=== PATIENT | male | born 1950 | race Caucasian/White ===

== ENCOUNTER 2017-05-04 12:46 | Emergency (ER) | payer MEDICARE, OTHER ==
[~2017-05-04] VITALS: Ht 182.9 cm; Wt 96.0 kg
[~2017-05-04 12:46] MED LIST: ALPR0.5T99 PO; LORT10TA PO
[2017-05-04 12:57] VITALS: BP 157/83; PULSE 61; RESP 16; TEMP 97.8; O2SAT 96
[2017-05-04] MEDS ORDERED: TRAM50TA PO (13:08)
[2017-05-04] MEDS ORDERED: ALPR.25 PO (13:08)
[2017-05-04] MEDS ORDERED: DICL75TA PO (13:08)
[2017-05-04] MEDS ORDERED: KETOROLAC TROMETHAMINE 60 MG/2 ML (IM) VIAL IM ONE (13:30)
[2017-05-04] MEDS ORDERED: MORPHINE SULFATE 4 MG/ML INJ IM ONE (13:30)
[2017-05-04] MEDS ORDERED: ONDANSETRON HCL 4 MG/2 ML VIAL IM ONE (13:30)
--- NOTE | 2017-05-04 13:33 | PD ---
HPI Chief Complaint: Musculoskeletal Complaint Time Seen by Provider: 13:13 Travel History International Travel<30 days: No Contact w/Intl Traveler<30days: No Traveled to known affect area: No History of Present Illness HPI This patient complains of pain in the right leg. Symptoms severity is moderate. No injury. Pain starting in the right hip area radiating down the right leg to the level of the midshin. He saw his primary physician who did a plain x-ray that was negative. He then told him to come to the ER to rule out a blood clot. No alleviating factors. Movement is not exacerbating the pain. PFSH Past Medical History Anxiety: Yes Psychiatric: Yes (anxiety) Tetanus Vaccination: Unknown Influenza Vaccination: Yes Past Surgical History Surgical History: No Previous Surgery Social History Alcohol Use: Yes (Rarely) Tobacco Use: No Substance Use: No Allergies-Medications (Allergen,Severity, Reaction): Coded Allergies: shellfish derived (Unverified Allergy, Unknown, Hives, 05/04/17) Reported Meds & Prescriptions Reported Meds & Active Scripts Active Reported Tramadol (Tramadol HCl) 50 Mg Tab 50 Mg PO Q8H PRN Diclofenac Sodium DR (Diclofenac Sodium) 75 Mg Tabdr 75 Mg PO DAILY Xanax (Alprazolam) 0.25 Mg Tab 0.25 Mg PO Q8H PRN Review of Systems General / Constitutional: No: Fever Eyes: No: Visual changes HENT: No: Headaches Cardiovascular: No: Chest Pain or Discomfort Respiratory: No: Shortness of Breath Gastrointestinal: No: Abdominal Pain Genitourinary: No: Dysuria Musculoskeletal: Positive: Pain Skin: No Rash Neurologic: No: Weakness Psychiatric: No: Depression Endocrine: No: Polydipsia Hematologic/Lymphatic: No: Easy Bruising Physical Exam Narrative GENERAL: Well-nourished, well-developed patient with right leg pain. SKIN: Focused skin assessment reveals no rash and nodules. Skin is Warm and dry. HEAD: Atraumatic. Normocephalic. EYES: Pupils equal and round. No scleral icterus. No injection or drainage. ENT: No nasal bleeding or discharge. Mucous membranes pink and moist. NECK: Trachea midline. No JVD. CARDIOVASCULAR: Regular rate and rhythm. No murmur appreciated. RESPIRATORY: No accessory muscle use. Clear to auscultation. Breath sounds equal bilaterally. GASTROINTESTINAL: Abdomen soft, non-tender, nondistended. Hepatic and splenic margins not palpable. MUSCULOSKELETAL: No obvious deformities. No clubbing. No cyanosis. No edema. NEUROLOGICAL: Awake and alert. No obvious cranial nerve deficits. Motor grossly within normal limits. Normal speech. PSYCHIATRIC: Appropriate mood and affect; insight and judgment normal. Data Data Last Documented VS Vital Signs Date Time Temp Pulse Resp B/P (MAP) Pulse Ox O2 Delivery O2 Flow Rate FiO2 05/04/17 12:57 97.8 61 16 157/83 (107) 96 Orders Orders Us Leg Venous Doppler (05/04/17 ) Ondansetron Inj (Zofran Inj) (05/04/17 13:30) Morphine Inj (Morphine Inj) (05/04/17 13:30) Ketorolac Inj (Toradol Inj) (05/04/17 13:30) MDM Medical Decision Making Medical Screen Exam Complete: Yes Emergency Medical Condition: Yes Medical Record Reviewed: Yes Differential Diagnosis Sciatica, DVT, soft tissue injury Narrative Course I have reviewed the patient's electronic medical record. No objective findings on exam Ultrasound of the right leg is normal I gave him injection of morphine and Zofran and Toradol for symptom relief Patient stable for outpatient follow-up. I think his presentation is most consistent with sciatica. If he doesn't have any resolution than his primary physician could consider arranging an MRI of the lumbosacral spine. This would be a next reasonable step. He is neurologically intact. I wrote him 20 Percocet to use as needed. Warned him about potential sedation and constipation. Diagnosis Primary Impression: Sciatica of right side Additional Instructions: The patient was advised to follow up with their physician and return if they worsen. The patient was warned about potential sedation for the medications they will receive on prescription. Med/Other Pt SpecificInfo: Prescription(s) given Disposition: DISCHARGE HOME Condition: Stable Quinn Mckeon MD May 04, 2017 13:32
--- NOTE | 2017-05-04 14:20 | RADRPT ---
EXAM DATE/TIME: 05/04/2017 13:55 [facility] COMPARISON: No previous studies available for comparison. EXTERNAL COMPARISON : [facility], XR HIP AP AND LAT, RIGHT, May 03, 2017 INDICATIONS : Right leg pain. MEDICAL HISTORY : Right leg pain. SURGICAL HISTORY : None. ENCOUNTER: Initial ACUITY: 3 days PAIN SCORE: 8/10 LOCATION: Right leg. TECHNIQUE: Venous ultrasound of the leg was performed from the inguinal ligament to the proximal calf. Real-aishwarya e, color Doppler and spectral tracing, compression and augmentation techniques were used. FINDINGS: There is normal compressibility of the deep venous system from the inguinal region to the proximal ca lf. No echogenic clot is seen in the lumen of the common femoral, femoral, popliteal, and posterior tibial veins. There is a normal response of the venous system to proximal and distal augmentation an d respiration. CONCLUSION: 1. No sonographic evidence for right lower extremity DVT. Bayron Duque MD on May 04, 2017 at 14:18 Board Certified Radiologist. This report was verified electronically.
[2017-05-04] MEDS ORDERED: PERC5TAB12 PO (14:42)
[2017-05-04 14:45] VITALS: BP 151/81; PULSE 62; RESP 16; O2SAT 98
== END 2017-05-04 15:05 | disposition home or self-care (01) ==
LOC: PHED 12:46
DX: M54.31 Sciatica, right side (principal)
CPT/HCPCS: 93971; 96372; 99285; J1885; J2270; J2405

== ENCOUNTER 2017-05-06 14:28 | Observation (INO) | payer MEDICARE ==
[~2017-05-06] VITALS: Ht 182.9 cm; Wt 95.5 kg
[~2017-05-06 14:28] MED LIST changes: +ALPR.25 PO; -ALPR0.5T99 PO; +DICL75TA PO; -LORT10TA PO; +PERC5TAB12 PO; +TRAM50TA PO
[2017-05-06 14:36] VITALS: BP 167/96; PULSE 89; RESP 20; TEMP 97.9; O2SAT 98
--- NOTE | 2017-05-06 15:19 | PD ---
HPI Chief Complaint: Pain: Acute or Chronic Time Seen by Provider: 21:15 Travel History International Travel<30 days: No Contact w/Intl Traveler<30days: No Traveled to known affect area: No History of Present Illness HPI 66-year-old white male here with his complaining of right hip pain which shooting pain to the right leg. Patient was here Sunday for evaluation as well but pain has not decreased and they're concerned that this pain will not go away. Apparently this pain started Sunday after doing some yard work. He denies trauma or any causative factors, nothing seems to decrease his pain. Active movement increases hi pain. He was seen by his primary care physician on and had an x-ray of his pelvis which was normal according to the patient. Patient came to the emergency department Sunday and was given an ultrasound and diagnosed with sciatica and discharged with pain medication. Pain apparently has not improved and has only worsened. Patient denies fevers, chills, unexplained weight loss, night sweats, loss of bowel or bladder function. Patient denies a personal history of cancer. PFSH Past Medical History Medical History: Denies Significant Hx Anxiety: Yes Psychiatric: Yes (anxiety) Tetanus Vaccination: < 5 Years Influenza Vaccination: Yes Past Surgical History Other Surgery: Yes Social History Alcohol Use: Yes (occassional) Tobacco Use: No (quit 1996) Substance Use: No Allergies-Medications (Allergen,Severity, Reaction): Coded Allergies: cefuroxime (Verified Allergy, Severe, itching, 05/06/17) shellfish derived (Unverified Allergy, Unknown, Hives, 05/06/17) Reported Meds & Prescriptions Reported Meds & Active Scripts Active Flexeril (Cyclobenzaprine HCl) 10 Mg Tab 10 Mg PO TID 7 Days Medrol Dosepak (Methylprednisolone) 4 Mg Dspk 4 Mg PO DIRECTED Per Pharmacist direction Percocet (Oxycodone-Acetaminophen) 5-325 mg Tab 1 Tab PO Q6H PRN Reported Tramadol (Tramadol HCl) 50 Mg Tab 50 Mg PO Q8H PRN Diclofenac Sodium DR (Diclofenac Sodium) 75 Mg Tabdr 75 Mg PO DAILY Xanax (Alprazolam) 0.25 Mg Tab 0.25 Mg PO Q8H PRN Review of Systems Except as stated in HPI: all other systems reviewed are Neg Physical Exam Narrative GENERAL: Well-nourished in moderate distress patient laying on left side in tears SKIN: Focused skin assessment warm/dry. HEAD: Atraumatic. Normocephalic. EYES: Pupils equal and round. No scleral icterus. No injection or drainage. ENT: No nasal bleeding or discharge. Mucous membranes pink and moist. NECK: Trachea midline. No JVD. CARDIOVASCULAR: Regular rate and rhythm. No murmur appreciated. RESPIRATORY: No accessory muscle use. Clear to auscultation. Breath sounds equal bilaterally. GASTROINTESTINAL: Abdomen soft, non-tender, nondistended. Hepatic and splenic margins not palpable. MUSCULOSKELETAL: No obvious deformities. No clubbing. No cyanosis. No edema. Patient has 5 out of 5 strength in upper extremities and left lower extremity. He has 4/5 strength hip flexion with significant pain. Difficulty performing ANNIE test right leg d/t pain but no clicks or pops. Pelvis is stable, symphysis pubis without crepitus or tenderness. No midline spinal tenderness. No ecchymosis, crepitus, step-off. NEUROLOGICAL: Awake and alert. No obvious cranial nerve deficits. Motor grossly within normal limits. Normal speech. PSYCHIATRIC: Appropriate mood and affect; insight and judgment normal. Data Data Last Documented VS Vital Signs Date Time Temp Pulse Resp B/P (MAP) Pulse Ox O2 Delivery O2 Flow Rate FiO2 05/06/17 22:33 70 20 144/66 (92) 98 05/06/17 19:51 Room Air 05/06/17 14:36 97.9 Orders Orders Ondansetron Odt (Zofran Odt) (05/06/17 15:30) Ketorolac Inj (Toradol Inj) (05/06/17 15:30) Hydromorphone Pf Inj (Dilaudid Pf Inj) (05/06/17 15:45) Mri L Spine W/O Contrast (05/06/17 ) Femur (Ap & Lat/2vws) (05/06/17 ) Pelvis, Ap Only (Routine) (05/06/17 ) Orphenadrine Inj (Norflex Inj) (05/06/17 18:00) Place In Observation (05/06/17 ) Vital Signs (Adult) Q4H (05/06/17 22:05) Activity Oob With Assistance (05/06/17 22:05) Diet Regular Basic (05/07/17 Breakfast) Sodium Chloride 0.9% Flush (Ns Flush) (05/06/17 22:15) Sodium Chloride 0.9% Flush (Ns Flush) (05/07/17 09:00) Ondansetron Inj (Zofran Inj) (05/06/17 22:15) Comprehensive Metabolic Panel (05/07/17 06:00) Complete Blood Count With Diff (05/07/17 06:00) Pt Request For Service (05/06/17 22:05) Case Management Consult (05/06/17 22:05) Scd Bilateral/Knee High ALYSHA.BID (05/06/17 22:05) Jose De Jesus Bilateral/Knee High ALYSHA.QSHIFT (05/06/17 22:10) Acetaminophen (Tylenol) (05/06/17 22:15) Acetamin-Hydrocod 325-5 Mg (Solomons 5-325 (05/06/17 22:15) Morphine Inj (Morphine Inj) (05/06/17 22:15) Docusate Sodium-Senna (Kailey-Colace) (05/07/17 09:00) Magnesium Hydroxide Liq (Milk Of Magnesi (05/06/17 22:15) Sennosides (Senokot) (05/06/17 22:15) Bisacodyl Supp (Dulcolax Supp) (05/06/17 22:15) Lactulose Liq (Lactulose Liq) (05/06/17 22:15) Alprazolam (Xanax) (05/06/17 22:15) Cyclobenzaprine (Flexeril) (05/07/17 09:00) MDM Medical Decision Making Medical Screen Exam Complete: Yes Emergency Medical Condition: Yes Differential Diagnosis Sciatica versus lumbago versus unlikely cauda equina Narrative Course 66-year-old white male complaining of right hip pain that radiates to the lower leg rated 10/10 with movement without alleviating factors. Patient denies unexplained weight loss, loss of bowel or bladder function, trauma, fevers, chills, saddle anesthesia. Also denied a personal history of cancer. Patient was given Dilaudid and Toradol IM with minimal relief. When I reassessed the patient after these medications were given, patient was no longer writhing in pain but was able to somewhat sit up and communicate with me. Physical exam demonstrated limited range of motion of right lower extremity due to pain but DTRs were present in bilateral lower extremities. No midline tenderness of spine. An MRI was ordered because of the extreme subjective pain- no emergent process seen. Pelvis and femur x-rays were obtained because of pt complaints of hip and leg pain- bother were negative for acute process. I do not see an indication for labs as patient was afebrile. insisted on seeing my attending who transferred care to Dr. Sr. I advised Dr. Sr of the situation and he agreed to see the patient. Because of pt's intractable pain and findings on Lumbar MRI, will admit. I discussed with my attending and he agreed with the plan. Diagnosis Primary Impression: Lumbago Qualified Codes: M54.41 - Lumbago with sciatica, right side Admitting Information Admitting Physician Requests: Admit Patient Instructions: General Instructions, Moderate Sedation (ED), Narcotic given in the ED Additional Instructions: It is imperative that follow-up in orthopedics doctor and her primary care physician within 2-3 days. Medications we have given can make you drowsy and increase of risk of fall. Be extremely careful with movement and use a cane or walker for mobility. Scripts Cyclobenzaprine (Flexeril) 10 Mg Tab 10 MG PO TID for Muscle Spasm for 7 Days, #21 TAB 0 Refills Prov: Karlee Cowan 05/06/17 Methylprednisolone Dosepak (Medrol Dosepak) 4 Mg Dspk 4 MG PO DIRECTED, #1 DSPK 0 Refills Per Pharmacist direction Prov: Karlee Cowan 05/06/17 Condition: Stable Karlee Cowan May 06, 2017 15:19
[2017-05-06] MEDS ORDERED: KETOROLAC TROMETHAMINE 60 MG/2 ML (IM) VIAL IM ONE (15:30)
[2017-05-06] MEDS ORDERED: ONDANSETRON ODT 4 MG TAB PO ONE (15:30)
[2017-05-06] MEDS ORDERED: HYDROmorphone HCL PF 1 MG/ML VIAL SQ ONE (15:30)
[2017-05-06] MEDS ORDERED: HYDROmorphone HCL PF 2 MG/ML VIAL SQ ONE (15:45)
[2017-05-06] MEDS ORDERED: ORPHENADRINE INJ 60 MG/2 ML AMP IM ONE (18:00)
--- NOTE | 2017-05-06 19:14 | RADRPT ---
EXAM DATE/TIME: 05/06/2017 18:40 [facility] COMPARISON: No previous studies available for comparison. INDICATIONS : Right hip area pain, no known injury MEDICAL HISTORY : None. SURGICAL HISTORY : None. ENCOUNTER: Initial ACUITY: 1 week PAIN SCORE: 10/10 LOCATION: Right pelvis FINDINGS: A single frontal view of the pelvis demonstrates no evidence of fracture. The bony pelvic ring is in tact. Bony mineralization is normal. The soft tissues are intact. CONCLUSION: Negative exam. Grayson Nash MD on May 06, 2017 at 19:12 Board Certified Radiologist. This report was verified electronically.
--- NOTE | 2017-05-06 19:14 | RADRPT ---
EXAM DATE/TIME: 05/06/2017 18:46 [facility] COMPARISON: No previous studies available for comparison. INDICATIONS : Right hip and femur pain, no known injury MEDICAL HISTORY : None. SURGICAL HISTORY : None. ENCOUNTER: Initial ACUITY: 1 week PAIN SCORE: 10/10 LOCATION: Right femur FINDINGS: Two view examination of the right femur demonstrates no evidence of fracture or dislocation. Bony mi neralization is normal. The soft tissue structures are intact. CONCLUSION: Negative exam. Grayson Nash MD on May 06, 2017 at 19:12 Board Certified Radiologist. This report was verified electronically.
[2017-05-06 19:51] VITALS: BP 99/67; PULSE 99; RESP 18; O2SAT 96
--- NOTE | 2017-05-06 20:04 | RADRPT ---
EXAM DATE/TIME: 05/06/2017 19:35 [facility] COMPARISON: No previous studies available for comparison. INDICATIONS : Low back and right leg pain. MEDICAL HISTORY : None. SURGICAL HISTORY : None. ENCOUNTER: Initial ACUITY: 1 day PAIN SCORE: 3/10 LOCATION: [facility] TECHNIQUE: Multiplanar multisequence MRI of the lumbar spine was performed without contrast. FINDINGS: The most caudal appearing lumbar vertebra is numbered as L5. There is 1 cm anterolisthesis of L5 wit h respect to S1. Vertebral body height is maintained. Focal signal abnormalities are seen in the po sterior superior endplate of L2 and in the left posterior superior endplate of L4, both characterized by T1 and T2 prolongation. There is also signal abnormality in the marrow of the L2 and L3 vertebra l body characteristic of degenerative changes and there is a prominent posterior osteophyte at the L2 -3 level on the left side. The conus is at the level of T12. There is mild curvature of the lumbar spine convex towards the right. Normal dimension abdominal aorta. Multiple parapelvic cysts in both kidneys. T12-L1: The thecal sac has a normal diameter. No evidence of disc bulge or protrusion. The neural foramina are patent bilaterally. L1-L2: The thecal sac is normal in configuration. There is mild bulging of the disc into the neural foramen on the left side without evidence of neural impingement. L2-L3: No central disc bulge. Prominent disc osteophyte complex extends into the neural foramina left side and causes neural foraminal narrowing. No evidence of neural impingement. The neural foramen on the right is patent. L3-L4: Mild right parasagittal disc bulge flattens the ventral margin of thecal sac. There is an epidural i mpression which extends inferior to the level of the disc space, measures 6 mm in AP diameter and has slightly different signal characteristics than the disc; this suggests an extruded disc fragment. T his fragment measures 1.3 cm in superior/inferior extent. L4-L5: Broad-based bulging of the disc without significant deformity of the thecal sac. There is bilateral facet joint hypertrophy, asymmetric on the left causing an asymmetric dorsolateral indentation on the posterior lateral left thecal sac. No evidence of neural impingement. L5-S1: This is the level of the anterolisthesis. The thecal sac is normal dimension. No evidence of disc b ulge or protrusion. CONCLUSION: 1. Probable extruded disc fragment on the right side arising from L3-L4 extending inferior into the l ateral recess. 2. Grade 1 anterolisthesis of L5-S1 without significant epidural impression. 3. Asymmetric facet joint hypertrophy and left-sided L4-5 causing indentation of the dorsal lateral a spect of the thecal sac. 4. Signal abnormalities in the posterior superior endplates of L2 and L4 without loss of vertebral ken dy height suggesting bony contusion. Grayson Nash MD on May 06, 2017 at 19:48 Board Certified Radiologist. This report was verified electronically.
[2017-05-06 20:43] VITALS: BP 162/83
[2017-05-06] MEDS ORDERED: MEDR4PAK PO (20:57)
[2017-05-06] MEDS ORDERED: CYCL1TAB29 PO (20:57)
[2017-05-06] MEDS ORDERED: SODIUM CHLORIDE 0.9% FLUSH 10 ML FLUSH IV FLUSH PRN (22:15)
[2017-05-06] MEDS ORDERED: ALPRAZolam 0.25 MG TAB PO PRN (22:15)
[2017-05-06] MEDS ORDERED: LACTULOSE SYRUP 20 GM/30 ML CUP PO PRN (22:15)
[2017-05-06] MEDS ORDERED: MAGNESIUM HYDROXIDE SUSP 30 ML CUP PO PRN (22:15)
[2017-05-06] MEDS ORDERED: BISACODYL 10 MG SUPP RECTAL PRN (22:15)
[2017-05-06] MEDS ORDERED: SENNOSIDES 8.6 MG TAB PO PRN (22:15)
[2017-05-06] MEDS ORDERED: ACETAMINOPHEN 325 MG TAB PO PRN (22:15)
[2017-05-06] MEDS: MORPHINE SULFATE 4 MG/ML INJ IV PUSH PRN (22:26)
[2017-05-06 22:33] VITALS: BP 144/66; PULSE 70; RESP 20; O2SAT 98
[2017-05-07] VITALS: BP 146/82; PULSE 94; RESP 16; TEMP 98.1; O2SAT 93
[2017-05-07 00:02] VITALS: BP 138/68
[2017-05-07] MEDS: ACETAMINOPHEN/HYDROcodone 325 MG/5 MG TAB PO PRN ×2 (00:39→04:48)
[2017-05-07] MEDS: MORPHINE SULFATE 4 MG/ML INJ IV PUSH PRN ×4 (02:44→20:26)
[2017-05-07 05:27] LABS: AUTOMATED NEUTROPHIL # 3.9 TH/MM3 (1.8-7.7); BASOPHIL % 0.3 % (0.0-2.0); EOSINOPHIL # 0.1 TH/MM3 (0-0.4); HEMATOCRIT 42.9 % (39.0-51.0); HEMO FLAGS DIFF FINAL; LYMPH % 19.1 % (9.0-44.0); LYMPHOCYTE # 1.1 TH/MM3 (1.0-4.8); MEAN CORPUSCULAR HEMOGLOBIN 27.7 PG (27.0-34.0); MEAN CORPUSCULAR HGB CONC 32.9 % (32.0-36.0); MONO % 11.2 % (0.0-8.0); NEUT % 67.4 % (16.0-70.0); PLATELET COUNT 180 TH/MM3 (150-450); RED BLOOD COUNT 5.11 MIL/MM3 (4.50-5.90); RED CELL DISTRIBUTION WIDTH 13.2 % (11.6-17.2); WHITE BLOOD COUNT 5.7 TH/MM3 (4.0-11.0)
[2017-05-07 05:56] LABS: CHLORIDE 103 MEQ/L (98-107); POTASSIUM 3.9 MEQ/L (3.5-5.1); SODIUM (NA) 139 MEQ/L (136-145)
[2017-05-07 06:00] LABS: ANION GAP 6 MEQ/L (5-15); BICARBONATE 29.6 MEQ/L (21.0-32.0); BLOOD UREA NITROGEN 14 MG/DL (7-18)
[2017-05-07 06:03] LABS: ALT (GPT) 49 U/L (12-78); AST (GOT) 30 U/L (15-37); GLOMERULAR FILTRATION RATE 85 ML/MIN (>89)
[2017-05-07 06:05] LABS: TOTAL BILIRUBIN ADULT 0.5 MG/DL (0.2-1.0)
[2017-05-07 06:06] LABS: ALKALINE PHOSPHATASE 87 U/L (45-117)
[2017-05-07 08:00] VITALS: BP 137/86; PULSE 76; RESP 18; TEMP 98.9; O2SAT 96
[2017-05-07] MEDS: SODIUM CHLORIDE 0.9% FLUSH 10 ML FLUSH IV FLUSH SCH ×2 (08:01→20:26)
[2017-05-07] MEDS: CYCLOBENZAPRINE HCL 10 MG TAB PO SCH ×3 (08:01→17:59)
[2017-05-07] MEDS: DOCUSATE SODIUM 50 MG/SENNA 8.6 MG TAB PO SCH ×2 (08:01→20:23)
[2017-05-07] MEDS: LIDOCAINE HCL 5% PATCH T-DERMAL SCH (10:12)
--- NOTE | 2017-05-07 11:34 | HHI.HP ---
[facility] Service [facility] Primary Care Physician Osmin Nunez MD Admission Diagnosis intractable back pain Diagnoses: (1) Intractable neuropathic pain of right lower extremity Diagnosis: Principal (2) Abnormal MRI, lumbar spine Diagnosis: Principal Chief Complaint: Right lower extremity pain Travel History International Travel<30 Days: No Contact w/Intl Traveler <30 Da: No Traveled to Known Affected Are: No History of Present Illness Written by Quinn Sr, acting as scribe for Dr. Deleon on 05/07/17 at 11 :12. 66 year-old male with no chronic medical illnesses to be presented to the emergency department for evaluation of right lower extremity pain. Patient states that on Sunday night when he got up from eating dinner at approximate 6: 54 PM he started developing pain in his lower back with radiation down his right hip area. It did not improve so he went to his primary medical doctor's office on Sunday. He states that he went had x-rays done and was prescribed Toradol which did not help his pain. The patient states that the pain in his back did improve however he started having significant hip pain and pain down his right leg. He has had severe pain ever since. He contacted his primary medical doctor again and recommended him to go to the ER to rule out a blood clot. Patient did undergo ultrasound which was normal. At that time the patient states that he was discharged home on oxycodone and medication for nausea. As indicated that if patient doesn't have resolution that his primary medical doctor can consider having an MRI done. Patient states that the medication did not help for his pain. Because he was unable to control the pain , he could not handle his pain at home, he came back to the emergency department and was reevaluated. Patient was given Dilaudid and Toradol in the emergency department with temporary relief. ER documentation indicates that an MRI was performed because of the extreme subjective pain, there is no emergent process seen at that time. Patient did not have any signs of any cauda equina syndrome. He did not have any loss of bowel or bladder control, no difficulty in ambulating, no weakness of the lower extremity. Records indicated that the insisted on being seen by the attending physician in the emergency department who agreed to see the patient. MRI was performed at that time. MRI does indicate probable extruding disc fragment on the right side arising from L3 -L4 extending inferior into the lateral recess. Grade 1 anterolisthesis of L5- S1 without significant epidural impression. Asymmetric facet joint hypertrophy and left-sided L4-L5 causing indention of the dorsal lateral aspect of the thecal sac. Signal abnormalities in posterior superior endplates of L2 and L4 without loss of vertebral height suggesting bony contusion. Records indicate that patient was going to be discharged home with follow-up with orthopedics and primary medical doctor within 2-3 days. However, because of his intractable pain it was recommended that the patient will be placed in the hospital for further evaluation and management. Patient states that he was told by the ER physician that he will have to have an orthopedic consultation for further evaluation Review of Systems Musculoskeletal: COMPLAINS OF: Muscle aches (right lower extremity) Neurologic: COMPLAINS OF: Paresthesias (right lower extremity) Except as stated in HPI: all other systems reviewed are Neg Past Family Social History Past Medical History Anxiety Past Surgical History No previous surgeries Reported Medications Reported Meds & Active Scripts Active Flexeril (Cyclobenzaprine HCl) 10 Mg Tab 10 Mg PO TID 7 Days Medrol Dosepak (Methylprednisolone) 4 Mg Dspk 4 Mg PO DIRECTED Per Pharmacist direction Percocet (Oxycodone-Acetaminophen) 5-325 mg Tab 1 Tab PO Q6H PRN Reported Tramadol (Tramadol HCl) 50 Mg Tab 50 Mg PO Q8H PRN Diclofenac Sodium DR (Diclofenac Sodium) 75 Mg Tabdr 75 Mg PO DAILY Xanax (Alprazolam) 0.25 Mg Tab 0.25 Mg PO Q8H PRN Allergies: Coded Allergies: cefuroxime (Verified Allergy, Severe, itching, 05/06/17) shellfish derived (Unverified Allergy, Unknown, Hives, 05/06/17) Family History Reviewed is significant for mom from Alzheimer's and cancer, father with cancer Social History Patient quit smoking in 1996, prior to that he smoked one pack a cigarettes a day since he was 16 years old. Patient denies any alcohol or illicit drugs Physical Exam Vital Signs Vital Signs Date Time Temp Pulse Resp B/P (MAP) Pulse Ox O2 Delivery O2 Flow Rate FiO2 10/2/17 08:00 98.9 76 18 137/86 (103) 96 05/07/17 00:02 72 18 138/68 (91) 97 05/07/17 00:00 98.1 94 16 146/82 (103) 93 05/06/17 22:33 70 20 144/66 (92) 98 05/06/17 20:43 162/83 (109) 05/06/17 19:51 99 18 99/67 (78) 96 Room Air 05/06/17 14:36 97.9 89 20 167/96 (119) 98 Physical Exam GENERAL: Well-developed, well-nourished, in no acute distress. alert and orientated HEENT: Head is normocephalic without any lesions or masses noted. Facial features are symmetric. Eyes: Pupils equal round reactive to light. Extraocular muscles are intact. Conjunctivae were clear. Oropharyngeal: Pharynx without any erythema edema. Tongue is midline without deviation. Buccal mucosa is moist without any masses or lesions NECK: Supple without any masses. Trachea midline no deviation. No JVD, no bruits are appreciated CARDIAC: Regular rhythm, regular rate. S1/S2 are heard. No murmurs gallops or rubs. LUNGS: Clear to auscultation bilaterally. No wheeze, rhonchi or rales. No use of accessory muscles on inspiration or expiration. ABDOMEN: Soft, nontender. Nondistended. Bowel sounds heard in all 4 quadrants. No organomegaly or masses. Negative rebound, negative guarding EXTREMITIES: No edema, pulses are equal bilaterally. No cyanosis or clubbing NEUROLOGY: Mood and affect appear appropriate. Cranial nerves II through XII grossly intact. Muscle strength 5/5 in upper and lower extremities bilaterally. Deep tendon reflexes are 2+ in upper and lower extremities bilaterally. LUMBAR SPINE: Patient has hypertonicity, tenderness noted along the right paraspinal musculature with palpable spasms. Straight leg raise produces pain in the right lower extremity. There is no pain located in the patient's back upon straight leg raise. No loss of strength in the lower extremities Laboratory Laboratory Tests Test 05/07/17 04:40 White Blood Count 5.7 Red Blood Count 5.11 Hemoglobin 14.1 Hematocrit 42.9 Mean Corpuscular Volume 84.0 Mean Corpuscular Hemoglobin 27.7 Mean Corpuscular Hemoglobin Concent 32.9 Red Cell Distribution Width 13.2 Platelet Count 180 Mean Platelet Volume 8.7 Neutrophils (%) (Auto) 67.4 Lymphocytes (%) (Auto) 19.1 Monocytes (%) (Auto) 11.2 Eosinophils (%) (Auto) 2.0 Basophils (%) (Auto) 0.3 Neutrophils # (Auto) 3.9 Lymphocytes # (Auto) 1.1 Monocytes # (Auto) 0.6 Eosinophils # (Auto) 0.1 Basophils # (Auto) 0.0 CBC Comment DIFF FINAL Differential Comment Blood Urea Nitrogen 14 Creatinine 0.89 Random Glucose 102 Total Protein 6.3 Albumin 3.2 Calcium Level 8.3 Alkaline Phosphatase 87 Aspartate Amino Transf (AST/SGOT) 30 Alanine Aminotransferase (ALT/SGPT) 49 Total Bilirubin 0.5 Sodium Level 139 Potassium Level 3.9 Chloride Level 103 Carbon Dioxide Level 29.6 Anion Gap 6 Estimat Glomerular Filtration Rate 85 Result Diagram: 05/07/170 05/07/170 Imaging Last Impressions Pelvis X-Ray 05/06/17 0000 Signed Impressions: Service Date/Time: Saturday, May 06, 2017 18:40 - CONCLUSION: Negative exam. Grayson Nash MD Lumbar Spine MRI 05/06/17 0000 Signed Impressions: Service Date/Time: Saturday, May 06, 2017 19:35 - CONCLUSION: 1. Probable extruded disc fragment on the right side arising from L3-L4 extending inferior into the lateral recess. 2. Grade 1 anterolisthesis of L5-S1 without significant epidural impression. 3. Asymmetric facet joint hypertrophy and left-sided L4-5 causing indentation of the dorsal lateral aspect of the thecal sac. 4. Signal abnormalities in the posterior superior endplates of L2 and L4 without loss of vertebral body height suggesting bony contusion. Grayson Nash MD Femur X-Ray 05/06/17 0000 Signed Impressions: Service Date/Time: Saturday, May 06, 2017 18:46 - CONCLUSION: Negative exam. Grayson Nash MD Caprini VTE Risk Assessment Caprini VTE Risk Assessment: Mod/High Risk (score >= 2) Caprini Risk Assessment Model Point Value = 1 Point Value = 2 Point Value = 3 Point Value = 5 Age 41-60 Minor surgery BMI > 25 kg/m2 Swollen legs Varicose veins or History of unexplained or recurrent spontaneous Oral contraceptives or hormone replacement Sepsis (< 1 month) Serious lung disease, including pneumonia (< 1 month) Abnormal pulmonary function Acute myocardial infarction Congestive heart failure (< 1 month) History of inflammatory bowel disease Medical patient at bed rest Age 61-74 Arthroscopic surgery Major open surgery (> 45 min) Laparoscopic surgery (> 45 min) Malignancy Confined to bed (> 72 hours) Immobilizing plaster cast Central venous access Age >= 75 History of VTE Family history of VTE Factor V Leiden Prothrombin [id number] Lupus anticoagulant Anticardiolipin antibodies Elevated serum homocysteine Heparin-induced thrombocytopenia Other congenital or acquired thrombophilia Stroke (< 1 month) Elective arthroplasty Hip, pelvis, or leg fracture Acute spinal cord injury (< 1 month) Prophylaxis Regimen Total Risk Factor Score Risk Level Prophylaxis Regimen 0-1 Low Early ambulation 2 Moderate Order ONE of the following: *Sequential Compression Device (SCD) *Heparin 5000 units SQ BID 3-4 Higher Order ONE of the following medications: *Heparin 5000 units SQ TID *Enoxaparin/Lovenox 40 mg SQ daily (WT < 150 kg, CrCl > 30 mL/min) *Enoxaparin/Lovenox 30 mg SQ daily (WT < 150 kg, CrCl > 10-29 mL/min) *Enoxaparin/Lovenox 30 mg SQ BID (WT < 150 kg, CrCl > 30 mL/min) AND/OR *Sequential Compression Device (SCD) 5 or more Highest Order ONE of the following medications: *Heparin 5000 units SQ TID (Preferred with Epidurals) *Enoxaparin/Lovenox 40 mg SQ daily (WT < 150 kg, CrCl > 30 mL/min) *Enoxaparin/Lovenox 30 mg SQ daily (WT < 150 kg, CrCl > 10-29 mL/min) *Enoxaparin/Lovenox 30 mg SQ BID (WT < 150 kg, CrCl > 30 mL/min) AND *Sequential Compression Device (SCD) Assessment and Plan Assessment and Plan Intractable right lower extremity neuropathic pain MRI of the lumbar spine did indicate abnormalities with extruding disc fragment on the right side arising from the L3-L4 extending inferior into the lateral recess. Patient requesting further consultation with specialist for evaluation, discussed with the patient options for consultation to include outpatient referral versus inpatient consultation. Patient requesting inpatient consultation We'll consult neurosurgery for recommendations Continue pain control, start Lidoderm patch, continue Moran as needed, morphine for breakthrough pain, Flexeril Physical therapy evaluation Anxiety Continue home medications DVT prevention Sequential compression devices This note was transcribed by scribe. Kim, Dr. Neela Deleon personally performed the history, physical exam, and medical decision making; and confirmed the accuracy of the information in the transcribed note. Authenticated by Dr. Neela Deleon on 05/07/17 at 12:44. Quinn Sr May 07, 2017 11:34 Neela Deleon MD May 07, 2017 12:44
[2017-05-07 13:44] VITALS: BP 130/72; PULSE 75; RESP 18; O2SAT 97
[2017-05-07] MEDS: ACETAMINOPHEN/HYDROcodone 325 MG/10 MG TAB PO PRN ×2 (13:48→19:12)
[2017-05-07] MEDS: ONDANSETRON HCL 4 MG/2 ML VIAL IVP PRN ×2 (14:32→20:26)
--- NOTE | 2017-05-07 15:27 | RADRPT ---
EXAM DATE/TIME: 05/07/2017 15:00 [facility] COMPARISON: No previous studies available for comparison. INDICATIONS : Lower back pain. MEDICAL HISTORY : None. SURGICAL HISTORY : None. ENCOUNTER: Subsequent ACUITY: 2 days PAIN SCORE: 10/10 LOCATION: lower back. FINDINGS: Lateral views of the lumbar spine were performed in flexion and extension. Mild, 2-3 mm, retrolisthes is of L2 on L3. Sagittal alignment is otherwise maintained in neutral position. There is slightly mor e pronounced approximately 4-5 mm retrolisthesis of L2 on L3 during flexion. No additional significan t motion segment abnormality. Degenerative spondylosis of the lumbar spine most prominently at L2-3 a nd L5-S1 with disc space narrowing, endplate sclerosis and osteophyte formation. Soft tissues are wit hin normal limits. CONCLUSION: 1. Multilevel degenerative spondylosis most prominently at L2-3 and L5-S1 with minimal increased retr olisthesis of L2 on L3 during flexion. Bayron Duque MD on May 07, 2017 at 15:21 Board Certified Radiologist. This report was verified electronically.
[2017-05-07 16:00] VITALS: BP 137/85; PULSE 75; RESP 18; TEMP 98.2; O2SAT 97
--- NOTE | 2017-05-07 18:01 | RADRPT ---
EXAM DATE/TIME: 05/07/2017 17:32 [facility] COMPARISON: No previous studies available for comparison. INDICATIONS : Intractable back pain. RADIATION DOSE: 35.86 CTDIvol (mGy) MEDICAL HISTORY : Renal calculi. SURGICAL HISTORY : None. ENCOUNTER: Initial ACUITY: 1 day PAIN SCALE: 10/10 LOCATION: low back pain TECHNIQUE: Volumetric scanning of the lumbar spine was performed. Multiplanar reconstructions in the sagittal, coronal and oblique axial planes were performed. Using automated exposure control and adjustment of the mA and/or kV according to patient size, radiation dose was kept as low as reasonably achievable t o obtain optimal diagnostic quality images. DICOM format image data is available electronically for review and comparison. FINDINGS: There are 5 lumbar-type vertebral bodies. VERTEBRAE: Vertebral body heights are intact. ALIGNMENT: Mild, approximately 2 mm retrolisthesis of L2 on L3 and approximate 6 mm anterolisthesis of L5 on S1. T12-L1: The thecal sac has a normal diameter. No evidence of disc bulge or protrusion. The neural foramina are patent bilaterally. L1-L2: Moderate diffuse disc space loss with vacuum disc phenomenon. Posterior disc osteophytes with mild li gamentum flavum hypertrophy and minimal facet arthropathy. Central canal narrowing to approximately 1 1 mm. Mild caudal bilateral neural foraminal narrowing. L2-L3: Moderate severe disc space loss with vacuum disc phenomenon. Posterior disc osteophyte complex and le ft paracentral osteophytes. Mild ligamentum flavum hypertrophy. Mild bilateral facet arthropathy. Kelly tral canal measures 10 mm. Mild caudal right and moderate caudal left neural foraminal stenosis secon rodrigue to osteophytes. L3-L4: Diffuse disc bulge with mild ligamentum flavum hypertrophy. Central canal measures approximately 11 m m. Mild caudal neuroforaminal narrowing bilaterally. L4-L5: Diffuse disc bulge, mild ligamentum flavum hypertrophy and bilateral facet arthropathy. Central canal narrowing to approximately 9 mm with effacement of the posterior left lateral recess secondary to fa cet osteophytes. Moderate right and mild caudal left neural frontal narrowing. L5-S1: Severe disc space loss with posterior disc osteophyte complex. Mild/moderate facet arthropathy. No si gnificant central canal stenosis. Severe right and moderate left neural foraminal narrowing. The paravertebral soft tissues demonstrate multiple parapelvic cysts bilaterally. Aorta is normal in caliber. No significant retroperitoneal adenopathy. CONCLUSION: 1. Advanced multilevel degenerative spondylosis most prominently at L2-3, L4-5 and L5-S1 with mild to moderate central canal narrowing at L4-5 and severe right neural foraminal stenosis at L5-S1. 2. Please see above for description of each level. Bayron Duque MD on May 07, 2017 at 17:49 Board Certified Radiologist. This report was verified electronically.
[2017-05-07 19:54] VITALS: BP 156/86; PULSE 76; RESP 19; TEMP 99.4; O2SAT 93
[2017-05-07] MEDS: REMOVE OLD LIDODERM PATCH T-DERMAL SCH (20:05)
--- NOTE | 2017-05-07 22:33 | MB ---
cc: GISELA HSIEH JOSE R. MD DATE OF CONSULTATION: 05/07/2017 REASON FOR CONSULTATION: Intractable right L4 radiculopathy. HISTORY OF PRESENT ILLNESS This is a 66 year-old gentleman with a six day history of intractable pain radiating from the right hip to the anterior thigh and sexton area. He has intermittent paresthesias and numbness in the leg, especially with movement and twisting. Denies any left lower extremity symptoms. Prior to that he does not relate any history of chronic back pain or radiculopathy. He initially saw his primary care physician and then subsequently was also referred to the ER on May 04, 2017. He was placed on muscle relaxers and pain medications and his symptoms did not improve. He came back to the ER yesterday in [place] where an MRI scan of the lumbar spine was obtained and shows extruded disk herniation at the L3-L4 level and inferiorly migrated on the right side. There is also advanced L2 and L3 degenerate disk disease with grade 1 retrolisthesis and left-sided disk protrusion and foraminal stenosis. There is also grade 1/2, L5-S1 spondylolisthesis with degenerate disk disease and right-sided foraminal stenosis with right pars defect. Flexion/extension x-rays subsequently have been obtained which reveals spondylolisthesis at L2-L3 and L5-S1, although gross instability is not noted. CT of the cervical spine also reveals degenerative disc disease involving L2-L3 and L5-S1 levels with disk height collapse and grade 1 spondylolisthesis. There is also severe right L5-S1 foraminal stenosis and from facet arthropathy along with a pars defect. There is also multilevel facet arthropathy throughout the lumbar spine. The patient relates that his pain is intractable and he cannot walk. He also had femur and pelvis x-ray which was negative. PAST MEDICAL HISTORY Anxiety. MEDICATIONS PRIOR TO ADMISSION 1. Xanax 0.25 mg q.8 h p.r.n. 2. Flexeril 10 mg t.i.d. 3. Diclofenac 75 mg daily 4. Medrol Dosepak. 5. Percocet one q.6 h p.r.n. 6. Tramadol 50 q.8 h p.r.n. ALLERGIES: SHELL FISH CEFTRIAXONE SOCIAL HISTORY: He is , retired. He quit smoking 20 years ago. Prior to that he smoked a pack a day for 18 years. Denies alcohol use. FAMILY HISTORY: Father diagnosed with cancer and is . Mother has a history of cancer and Alzheimer's disease and also . REVIEW OF SYSTEMS: Right leg pain with intermittent numbness and paresthesias for the past week or so. Denies any left lower extremity symptoms. Denies any incontinence. There is subjective weakness in the right leg with difficulty ambulating. The pain is intractable despite steroids, pain medications and muscle relaxers. He denies any fall or any traumatic events preceding this. No chest pain or shortness of breath. No history of easy bleeding or bruising. No fever or chills. No alexis incontinence. No double vision or blurred vision. No history of seizure or stroke. No recent weight gain or weight loss. No foch8i. The remainder of the review of systems is otherwise unremarkable. LABORATORY STUDIES: White blood cell count 5.7, hemoglobin 14.1, platelet count 180, sodium 139, potassium 3.9, BUN 14, creatinine 0.89, glucose 102. PHYSICAL EXAMINATION: VITAL SIGNS: Temperature 98.2, pulse 75, respiratory 18, blood pressure 137/85, oxygen saturation 97% on room air. Head: No Faith's or raccoon's sign. Neck: Neck is supple with good range of motion. Chest: Clear to auscultation bilaterally. Heart: Regular rate and rhythm, normal S1-S2. Abdomen: Soft, nontender, positive bowel sounds. Extremities: No cyanosis or edema. Neurologic: He is awake, alert and oriented x3. Pupils equal and reactive. Extraocular movements intact. Face is symmetric. Tongue is midline. Motor strength in the upper extremities, 5/5 in the left lower extremities, 5/5 in the right lower extremity with giveaway weakness from the pain, although on individual testing he does seem to have fairly good strength. Light touch sensation is intact. Negative Babinski. Skin: No rashes, ecchymosis or edema. IMPRESSION Intractable right L4 radiculopathy with L3-4 disk herniation and inferiorly migrated fragment. He also has advanced L2-L3 and L5-S1 degenerative disc disease with associated spondylolisthesis and worse at the L5-S1 level with severe right-sided foraminal stenosis. PLAN The patient is admitted for pain control and increase his activity status with physical therapy involvement. Sequential compression devices for DVT prophylaxis and if his symptoms do not improve or he has difficulty ambulating then we also discussed the option of right L3-4 microdiskectomy and the risks and benefits involved. He does have severe right L5-S1 foraminal stenosis along with degenerate disk disease and grade 1/2 spondylolisthesis with arthropathy but does not appear to have any significant L5-S1 radiculopathy to corroborate with this finding at this point. MD VIOLETTE Anderson/CHARLES /6:16 PM /10:13 PM
[2017-05-08] VITALS (8 sets, daily range): BP systolic 148–170; BP diastolic 83–96; PULSE 65–98; RESP 18–20; TEMP 98.2–99.8; O2SAT 92–98
[2017-05-08] MEDS: ACETAMINOPHEN/HYDROcodone 325 MG/10 MG TAB PO PRN ×2 (01:27→05:32)
[2017-05-08] MEDS: ONDANSETRON HCL 4 MG/2 ML VIAL IVP PRN (04:38)
[2017-05-08] MEDS: MORPHINE SULFATE 4 MG/ML INJ IV PUSH PRN ×2 (04:39→07:54)
[2017-05-08] MEDS: CYCLOBENZAPRINE HCL 10 MG TAB PO SCH ×3 (07:52→17:34)
[2017-05-08] MEDS: DOCUSATE SODIUM 50 MG/SENNA 8.6 MG TAB PO SCH ×2 (07:52→19:57)
[2017-05-08] MEDS: SODIUM CHLORIDE 0.9% FLUSH 10 ML FLUSH IV FLUSH SCH ×2 (07:52→19:57)
[2017-05-08] MEDS: RESP: ALBUTEROL 2.5 MG/IPRATROPIUM 0.5 MG NEB (SCH) NEB ×3 (09:00→21:48)
[2017-05-08] MEDS ORDERED: methylPREDNISolone SOD SUCC 125 MG/2 ML VIAL IV PUSH ONE (09:00)
[2017-05-08] MEDS: LIDOCAINE HCL 5% PATCH T-DERMAL SCH (09:08)
--- NOTE | 2017-05-08 09:08 | HHI.PR ---
Subjective Remarks Follow-up for radicular pain. Patient continues to complain of lower back pain radiating down his entire right leg. He states it feels like nerve pain on the inside. He is able to ambulate, but states it makes the pain significantly worse. The pain remains severe, but the medication does take the edge off the bed. He states that nothing has been given so far has provided him with any significant relief. He would prefer to have surgery and would like his to talk to the surgeon. He has been having constipation for the past few days. He has been having a cough with dark sputum. He feels like his wheezing is secondary to chest congestion from phlegm. He does have a history of childhood asthma. He quit smoking in 1996. Objective Vitals Vital Signs Date Time Temp Pulse Resp B/P (MAP) Pulse Ox O2 Delivery O2 Flow Rate FiO2 05/08/17 07:23 98.8 65 18 148/83 (104) 92 05/08/17 03:42 99.1 84 18 170/96 (120) 94 05/08/17 00:09 98.2 73 18 157/94 (115) 92 05/07/17 19:54 99.4 76 19 156/86 (109) 93 05/07/17 16:00 98.2 75 18 137/85 (102) 97 05/07/17 13:44 75 18 130/72 (91) 97 I/O 05/07/17 05/07/17 05/07/17 05/08/17 05/08/17 05/08/17 07:00 15:00 23:00 07:00 15:00 23:00 Intake Total 500 ml Output Total 600 ml Balance -100 ml Intake Oral 500 ml Output Urine Total 600 ml # Voids 1 Result Diagram: 05/07/17 0440 05/07/17 0440 Imaging Last Impressions Lumbar Spine X-Ray 05/07/17 0000 Signed Impressions: Service Date/Time: Sunday, May 07, 2017 15:00 - CONCLUSION: 1. Multilevel degenerative spondylosis most prominently at L2-3 and L5-S1 with minimal increased retrolisthesis of L2 on L3 during flexion. Bayron Duque MD Lumbar Spine CT 05/07/17 0000 Signed Impressions: Service Date/Time: Sunday, May 07, 2017 17:32 - CONCLUSION: 1. Advanced multilevel degenerative spondylosis most prominently at L2-3, L4-5 and L5-S1 with mild to moderate central canal narrowing at L4-5 and severe right neural foraminal stenosis at L5-S1. 2. Please see above for description of each level. Bayron Duque MD Pelvis X-Ray 05/06/17 0000 Signed Impressions: Service Date/Time: Saturday, May 06, 2017 18:40 - CONCLUSION: Negative exam. rGayson Nash MD Lumbar Spine MRI 05/06/17 0000 Signed Impressions: Service Date/Time: Saturday, May 06, 2017 19:35 - CONCLUSION: 1. Probable extruded disc fragment on the right side arising from L3-L4 extending inferior into the lateral recess. 2. Grade 1 anterolisthesis of L5-S1 without significant epidural impression. 3. Asymmetric facet joint hypertrophy and left-sided L4-5 causing indentation of the dorsal lateral aspect of the thecal sac. 4. Signal abnormalities in the posterior superior endplates of L2 and L4 without loss of vertebral body height suggesting bony contusion. Grayson Nash MD Femur X-Ray 05/06/17 0000 Signed Impressions: Service Date/Time: Saturday, May 06, 2017 18:46 - CONCLUSION: Negative exam. Grayson Nash MD Objective Remarks GENERAL: Well-developed well-nourished. In no acute distress. SKIN: Warm and dry. No lesions noted. HEENT: Normocephalic. Pupils equal and round. Mucous membranes pink and moist. CARDIOVASCULAR: Regular rate and rhythm. No murmur appreciated. RESPIRATORY: No accessory muscle use. Clear to auscultation. Faint expiratory wheezing. GASTROINTESTINAL: Abdomen soft, non-tender, nondistended. Bowel sounds x4. MUSCULOSKELETAL: No obvious deformities. No clubbing or cyanosis. No edema. NEUROLOGICAL: Awake and alert. Moves upper and lower extremities spontaneously. Normal speech. PSYCHIATRIC: Appropriate mood and affect; insight and judgment normal. A/P Problem List: (1) Intractable neuropathic pain of right lower extremity ICD Code: G57.91 - Unspecified mononeuropathy of right lower limb Status: Acute (2) Abnormal MRI, lumbar spine ICD Code: R93.7 - Abnormal findings on diagnostic imaging of other parts of musculoskeletal system Status: Acute (3) COPD (chronic obstructive pulmonary disease) ICD Code: J44.9 - Chronic obstructive pulmonary disease, unspecified Status: Acute Assessment and Plan 66 year-old male with no chronic medical illnesses who presented with right lower extremity pain Intractable right lower extremity neuropathic pain MRI of the lumbar spine did indicate abnormalities with extruding disc fragment on the right side arising from the L3-L4 extending inferior into the lateral recess. Neurosurgery consulted, who recommended trial of pain control and possible operative intervention Continue pain control, Lidoderm patch, continue [place] as needed, morphine for breakthrough pain, Flexeril scheduled Add gabapentin PT consult Probable acute exacerbation of underlying COPD: Patient with extensive tobacco use history in the past. Wheezing on exam. Complaining of productive cough. Check chest x-ray Scheduled meds IV Solu-Medrol 1 Guaifenesin Anxiety: Chronic. Continue home medications DVT prevention Sequential compression devices Discharge Planning Follow up neurosurgery recommendation Problem Qualifiers (1) COPD (chronic obstructive pulmonary disease): Qualified Codes: J44.1 - Chronic obstructive pulmonary disease with (acute) exacerbation Cleve Griffin May 08, 2017 09:08
[2017-05-08] MEDS: GABAPENTIN 300 MG CAP PO SCH ×3 (09:16→17:34)
[2017-05-08] MEDS: guaiFENesin E.R. 600 MG TAB PO SCH ×2 (09:17→19:57)
[2017-05-08] MEDS: POLYETHYLENE GLYCOL 17 GM PKG PO SCH (09:17)
--- NOTE | 2017-05-08 09:31 | RADRPT ---
EXAM DATE/TIME: 05/08/2017 08:58 [facility] COMPARISON: No previous studies available for comparison. INDICATIONS : Cough. MEDICAL HISTORY : Renal calculi. SURGICAL HISTORY : None. ENCOUNTER: Initial ACUITY: 3 days PAIN SCORE: 0/10 LOCATION: Bilateral chest FINDINGS: Subtle linear parenchymal opacities in the left lung base. Once otherwise clear. Cardiomediastinal co ntours are within normal limits. Bony thorax is intact. CONCLUSION: 1. Subtle linear airspace disease at the left lung base, presumably atelectasis. Bayron Duque MD on May 08, 2017 at 9:29 Board Certified Radiologist. This report was verified electronically.
[2017-05-08] MEDS: predniSONE 20 MG TAB PO SCH (19:57)
[2017-05-08] MEDS: ACETAMINOPHEN/HYDROcodone 325 MG/5 MG TAB PO PRN (19:57)
--- NOTE | 2017-05-08 20:40 | HHI.NSPN ---
History Interval History 66 year-old gentleman with a six day history of intractable pain radiating from the right hip to the anterior thigh and sexton area. He has intermittent paresthesias and numbness in the leg, especially with movement and twisting. Denies any left lower extremity symptoms. Prior to that he does not relate any history of chronic back pain or radiculopathy. He initially saw his primary care physician and then subsequently was also referred to the ER on May 04, 2017. He was placed on muscle relaxers and pain medications and his symptoms did not improve. He came back to the ER yesterday in [place] where an MRI scan of the lumbar spine was obtained and shows extruded disk herniation at the L3-L4 level and inferiorly migrated on the right side. There is also advanced L2 and L3 degenerate disk disease with grade 1 retrolisthesis and left-sided disk protrusion and foraminal stenosis. There is also grade 1/2, L5-S1 spondylolisthesis with degenerate disk disease and right-sided foraminal stenosis with right pars defect. Flexion/extension x-rays subsequently have been obtained which reveals spondylolisthesis at L2-L3 and L5-S1, although gross instability is not noted. CT of the cervical spine also reveals degenerative disc disease involving L2-L3 and L5-S1 levels with disk height collapse and grade 1 spondylolisthesis. There is also severe right L5-S1 foraminal stenosis and from facet arthropathy along with a pars defect. There is also multilevel facet arthropathy throughout the lumbar spine. The patient relates that his pain is intractable and he cannot walk. He also had femur and pelvis x-ray which was negative. 05/08/17: Relates some improvement of right leg pain. and daughter at bedside with multiple questions. Review of Systems General: Negative for: fever, chills, insomnia Respiratory: Positive for: cough Cardiovascular: Negative for: chest pain, palpitations, orthopnea Gastrointestinal: Negative for: nausea, vomitting, diarrhea, constipation Genitourinary: Negative for: urinary burning, urinary frequency, urinary urgency Exam Results Vital Signs Date Time Temp Pulse Resp B/P (MAP) Pulse Ox O2 Delivery O2 Flow Rate FiO2 05/08/17 19:27 99.8 98 18 158/88 (111) 97 05/08/17 09:34 21 05/06/17 19:51 Room Air Physical Examination Head: No Faith's or raccoon's sign. Neck: Neck is supple with good range of motion. Chest: Clear to auscultation bilaterally. Heart: Regular rate and rhythm, normal S1-S2. Abdomen: Soft, nontender, positive bowel sounds. Extremities: No cyanosis or edema. Neurologic: He is awake, alert and oriented x3. Pupils equal and reactive. Extraocular movements intact. Face is symmetric. Tongue is midline. Motor strength in the upper extremities, 5/5 in the left lower extremities, 5/5 in the right lower extremity with giveaway weakness from the pain, although on individual testing he does seem to have fairly good strength. Light touch sensation is intact. Negative Babinski. Skin: No rashes, ecchymosis or edema. Lab, Micro, Other Results Last Impressions Chest X-Ray 05/08/17 Signed Impressions: Service Date/Time: Monday, May 08, 2017 08:58 - CONCLUSION: 1. Subtle linear airspace disease at the left lung base, presumably atelectasis. Bayron Duque MD Lumbar Spine X-Ray 05/07/17 Signed Impressions: Service Date/Time: Sunday, May 07, 2017 15:00 - CONCLUSION: 1. Multilevel degenerative spondylosis most prominently at L2-3 and L5-S1 with minimal increased retrolisthesis of L2 on L3 during flexion. Bayron Duque MD Lumbar Spine CT 05/07/17 Signed Impressions: Service Date/Time: Sunday, May 07, 2017 17:32 - CONCLUSION: 1. Advanced multilevel degenerative spondylosis most prominently at L2-3, L4-5 and L5-S1 with mild to moderate central canal narrowing at L4-5 and severe right neural foraminal stenosis at L5-S1. 2. Please see above for description of each level. Bayron Duque MD Pelvis X-Ray 05/06/17 0000 Signed Impressions: Service Date/Time: Saturday, May 06, 2017 18:40 - CONCLUSION: Negative exam. Grayson Nash MD Lumbar Spine MRI 05/06/17 0000 Signed Impressions: Service Date/Time: Saturday, May 06, 2017 19:35 - CONCLUSION: 1. Probable extruded disc fragment on the right side arising from L3-L4 extending inferior into the lateral recess. 2. Grade 1 anterolisthesis of L5-S1 without significant epidural impression. 3. Asymmetric facet joint hypertrophy and left-sided L4-5 causing indentation of the dorsal lateral aspect of the thecal sac. 4. Signal abnormalities in the posterior superior endplates of L2 and L4 without loss of vertebral body height suggesting bony contusion. Grayson Nash MD Femur X-Ray 05/06/17 0000 Signed Impressions: Service Date/Time: Saturday, May 06, 2017 18:46 - CONCLUSION: Negative exam. Grayson Nash MD Medical Decision Making Impression and Plan Intractable right L4 radiculopathy with L3-4 disk herniation and inferiorly migrated fragment. Advanced L2-L3 and L5-S1 degenerative disc disease with associated spondylolisthesis and worse at the L5-S1 level with severe right-sided foraminal stenosis. Placed on Solu-Medrol for cough and atelectasis along with gabapentin which has improved his right lower extremity severe radiculopathy. Discussed at length with patient and family members at bedside regarding treatment options including surgery if his symptoms do not improve. If his pain is adequately controlled and is able to ambulate then he could be discharged home and follow-up in the clinic if symptoms recur. Recommend outpatient physical therapy. Discussed with the medical staff. Celestine Lopez MD May 08, 2017 20:40
[2017-05-08] MEDS: REMOVE OLD LIDODERM PATCH T-DERMAL SCH (21:00)
[2017-05-09 00:46] VITALS: BP 159/81; PULSE 90; RESP 18; TEMP 98.9; O2SAT 96
[2017-05-09 04:08] VITALS: BP 155/83; PULSE 71; RESP 19; TEMP 98.2; O2SAT 97
[2017-05-09] MEDS: RESP: ALBUTEROL 2.5 MG/IPRATROPIUM 0.5 MG NEB (SCH) NEB ×2 (07:44→14:11)
--- NOTE | 2017-05-09 08:57 | HHI.PR ---
Subjective Remarks Follow-up for radicular back and right leg pain. The patient is feeling much better today. He is ambulating in his room upon presentation. He states that his pain is currently 2/10 in severity. He is apprehensive that when he increases his activity he does not want the pain to get significantly worse. Currently he is agreeable for conservative management with pain control, PT and would like to avoid surgery if possible. He feels like the [place] works better than the IV morphine. Objective Vitals Vital Signs Date Time Temp Pulse Resp B/P (MAP) Pulse Ox O2 Delivery O2 Flow Rate FiO2 05/09/17 07:45 21 05/09/17 04:08 98.2 71 19 155/83 (107) 97 05/09/17 00:46 98.9 90 18 159/81 (107) 96 05/08/17 21:52 96 21 05/08/17 19:27 99.8 98 18 158/88 (111) 97 05/08/17 16:08 98.9 96 18 153/88 (109) 95 05/08/17 11:09 98.8 72 20 148/85 (106) 93 05/08/17 09:34 98 21 Result Diagram: 05/07/17 0440 05/07/17 0440 Imaging Last Impressions Chest X-Ray 05/08/17 0000 Signed Impressions: Service Date/Time: Monday, May 08, 2017 08:58 - CONCLUSION: 1. Subtle linear airspace disease at the left lung base, presumably atelectasis. Bayron Duque MD Lumbar Spine X-Ray 05/07/17 0000 Signed Impressions: Service Date/Time: Sunday, May 07, 2017 15:00 - CONCLUSION: 1. Multilevel degenerative spondylosis most prominently at L2-3 and L5-S1 with minimal increased retrolisthesis of L2 on L3 during flexion. Bayron Duque MD Lumbar Spine CT 05/07/17 0000 Signed Impressions: Service Date/Time: Sunday, May 07, 2017 17:32 - CONCLUSION: 1. Advanced multilevel degenerative spondylosis most prominently at L2-3, L4-5 and L5-S1 with mild to moderate central canal narrowing at L4-5 and severe right neural foraminal stenosis at L5-S1. 2. Please see above for description of each level. Bayron Duque MD Pelvis X-Ray 05/06/17 Signed Impressions: Service Date/Time: Saturday, May 06, 2017 18:40 - CONCLUSION: Negative exam. Grayson Nash MD Lumbar Spine MRI 05/06/17 Signed Impressions: Service Date/Time: Saturday, May 06, 2017 19:35 - CONCLUSION: 1. Probable extruded disc fragment on the right side arising from L3-L4 extending inferior into the lateral recess. 2. Grade 1 anterolisthesis of L5-S1 without significant epidural impression. 3. Asymmetric facet joint hypertrophy and left-sided L4-5 causing indentation of the dorsal lateral aspect of the thecal sac. 4. Signal abnormalities in the posterior superior endplates of L2 and L4 without loss of vertebral body height suggesting bony contusion. Grayson Nash MD Femur X-Ray 05/06/17 Signed Impressions: Service Date/Time: Saturday, May 06, 2017 18:46 - CONCLUSION: Negative exam. Grayson Nash MD Objective Remarks GENERAL: Well-developed well-nourished. In no acute distress. SKIN: Warm and dry. No lesions noted. HEENT: Normocephalic. Pupils equal and round. Mucous membranes pink and moist. CARDIOVASCULAR: Regular rate and rhythm. No murmur appreciated. RESPIRATORY: No accessory muscle use. Clear to auscultation. No wheezing. GASTROINTESTINAL: Abdomen soft, non-tender, nondistended. Bowel sounds x4. MUSCULOSKELETAL: No obvious deformities. No clubbing or cyanosis. No edema. NEUROLOGICAL: Awake and alert. Moves upper and lower extremities spontaneously. Normal speech. Lower extremity strength 5/5. PSYCHIATRIC: Appropriate mood and affect; insight and judgment normal. A/P Problem List: (1) Intractable neuropathic pain of right lower extremity ICD Code: G57.91 - Unspecified mononeuropathy of right lower limb Status: Acute (2) Abnormal MRI, lumbar spine ICD Code: R93.7 - Abnormal findings on diagnostic imaging of other parts of musculoskeletal system Status: Acute (3) COPD (chronic obstructive pulmonary disease) ICD Code: J44.9 - Chronic obstructive pulmonary disease, unspecified Status: Acute Assessment and Plan 66 year-old male with no chronic medical illnesses who presented with right lower extremity pain Intractable right lower extremity neuropathic pain MRI of the lumbar spine did indicate abnormalities with extruding disc fragment on the right side arising from the L3-L4 extending inferior into the lateral recess. Neurosurgery consulted, D/W Dr. Lopez, was considering operative intervention, however with significant improvement he recommended continuing conservative management with pain control and if pain is improved then patient can follow-up as outpatient Continue pain control, Lidoderm patch, continue [place] as needed, morphine for breakthrough pain, Flexeril scheduled Added gabapentin, can continue to titrate this as outpatient PT consulted for reevaluation Probable acute exacerbation of underlying COPD: Patient with extensive tobacco use history in the past. Wheezing on exam has improved with steroids. Chest x- ray with subtle linear atelectasis in the left lung base. Scheduled nebs Given IV Solu-Medrol 1, continue on oral prednisone taper Guaifenesin IS Anxiety: Chronic. Continue home medications Elevated blood pressure: BP is borderline elevated, but acceptable. Likely exacerbated secondary to pain. Monitor and consider starting on blood pressure medications when pain is better controlled DVT prevention Sequential compression devices Discharge Planning Follow-up PT recommendations. We'll reassess later today for possible discharge home if pain remains controlled. Problem Qualifiers (1) COPD (chronic obstructive pulmonary disease): Qualified Codes: J44.1 - Chronic obstructive pulmonary disease with (acute) exacerbation Cleve Griffin May 09, 2017 08:57
[2017-05-09 09:05] VITALS: BP 174/88; PULSE 102; RESP 20; TEMP 96.4; O2SAT 95
[2017-05-09] MEDS: POLYETHYLENE GLYCOL 17 GM PKG PO SCH (09:19)
[2017-05-09] MEDS: GABAPENTIN 300 MG CAP PO SCH ×3 (09:20→17:31)
[2017-05-09] MEDS: guaiFENesin E.R. 600 MG TAB PO SCH (09:20)
[2017-05-09] MEDS: DOCUSATE SODIUM 50 MG/SENNA 8.6 MG TAB PO SCH (09:20)
[2017-05-09] MEDS: CYCLOBENZAPRINE HCL 10 MG TAB PO SCH ×3 (09:20→17:31)
[2017-05-09] MEDS: predniSONE 20 MG TAB PO SCH (09:21)
[2017-05-09] MEDS: SODIUM CHLORIDE 0.9% FLUSH 10 ML FLUSH IV FLUSH SCH (09:22)
[2017-05-09] MEDS: LIDOCAINE HCL 5% PATCH T-DERMAL SCH (10:14)
[2017-05-09] MEDS: ACETAMINOPHEN/HYDROcodone 325 MG/5 MG TAB PO PRN (10:14)
[2017-05-09 12:22] VITALS: BP 159/69; PULSE 83; RESP 21; TEMP 96.3; O2SAT 93
[2017-05-09] MEDS: ACETAMINOPHEN/HYDROcodone 325 MG/10 MG TAB PO PRN (15:11)
--- NOTE | 2017-05-09 15:39 | HHI.NSPN ---
History Chief Complaint: right anterior leg pain. Interval History 66 year-old gentleman with a six day history of intractable pain radiating from the right hip to the anterior thigh and sexton area. He has intermittent paresthesias and numbness in the leg, especially with movement and twisting. Denies any left lower extremity symptoms. Prior to that he does not relate any history of chronic back pain or radiculopathy. He initially saw his primary care physician and then subsequently was also referred to the ER on May 04, 2017. He was placed on muscle relaxers and pain medications and his symptoms did not improve. He came back to the ER yesterday in [place] where an MRI scan of the lumbar spine was obtained and shows extruded disk herniation at the L3-L4 level and inferiorly migrated on the right side. There is also advanced L2 and L3 degenerate disk disease with grade 1 retrolisthesis and left-sided disk protrusion and foraminal stenosis. There is also grade 1/2, L5-S1 spondylolisthesis with degenerate disk disease and right-sided foraminal stenosis with right pars defect. Flexion/extension x-rays subsequently have been obtained which reveals spondylolisthesis at L2-L3 and L5-S1, although gross instability is not noted. CT of the cervical spine also reveals degenerative disc disease involving L2-L3 and L5-S1 levels with disk height collapse and grade 1 spondylolisthesis. There is also severe right L5-S1 foraminal stenosis and from facet arthropathy along with a pars defect. There is also multilevel facet arthropathy throughout the lumbar spine. The patient relates that his pain is intractable and he cannot walk. He also had femur and pelvis x-ray which was negative. 05/08/17: Relates some improvement of right leg pain. and daughter at bedside with multiple questions. 05/09/17: Patient resting in bed. States his right anterior leg pain to the top of the foot is improving. Rates it currently as 2/10. States he has been ambulating short distances to the bathroom. Review of Systems General: Negative for: fever, chills, insomnia Respiratory: Negative for: shortness of breath, cough, sputum Cardiovascular: Negative for: chest pain Gastrointestinal: Negative for: nausea, vomitting, diarrhea, constipation Exam Results Vital Signs Date Time Temp Pulse Resp B/P (MAP) Pulse Ox O2 Delivery O2 Flow Rate FiO2 05/09/17 12:22 96.3 83 21 159/69 (99) 93 05/09/17 07:45 21 05/06/17 19:51 Room Air Physical Examination Head: No Faith's or raccoon's sign. Neck: Neck is supple with good range of motion. Chest: Clear to auscultation bilaterally. Heart: Regular rate and rhythm, normal S1-S2. Abdomen: Soft, nontender, positive bowel sounds. Extremities: No cyanosis or edema. Muscle: Motor strength is 5 out of 5 in the upper and lower extremities. He is ambulating short distances to the bathroom. Neurologic: He is awake, alert and oriented x3. Pupils equal and reactive. Extraocular movements intact. Face is symmetric. Tongue is midline. Light touch sensation is intact. Negative Babinski. Skin: No rashes, ecchymosis or edema. Lab, Micro, Other Results Last Impressions Chest X-Ray 05/08/17 0000 Signed Impressions: Service Date/Time: Monday, May 08, 2017 08:58 - CONCLUSION: 1. Subtle linear airspace disease at the left lung base, presumably atelectasis. Bayron Duque MD Lumbar Spine X-Ray 05/07/17 0000 Signed Impressions: Service Date/Time: Sunday, May 07, 2017 15:00 - CONCLUSION: 1. Multilevel degenerative spondylosis most prominently at L2-3 and L5-S1 with minimal increased retrolisthesis of L2 on L3 during flexion. Bayron Duque MD Lumbar Spine CT 05/07/17 0000 Signed Impressions: Service Date/Time: Sunday, May 07, 2017 17:32 - CONCLUSION: 1. Advanced multilevel degenerative spondylosis most prominently at L2-3, L4-5 and L5-S1 with mild to moderate central canal narrowing at L4-5 and severe right neural foraminal stenosis at L5-S1. 2. Please see above for description of each level. Bayron Duque MD Pelvis X-Ray 05/06/17 0000 Signed Impressions: Service Date/Time: Saturday, May 06, 2017 18:40 - CONCLUSION: Negative exam. Grayson Nash MD Lumbar Spine MRI 05/06/17 0000 Signed Impressions: Service Date/Time: Saturday, May 06, 2017 19:35 - CONCLUSION: 1. Probable extruded disc fragment on the right side arising from L3-L4 extending inferior into the lateral recess. 2. Grade 1 anterolisthesis of L5-S1 without significant epidural impression. 3. Asymmetric facet joint hypertrophy and left-sided L4-5 causing indentation of the dorsal lateral aspect of the thecal sac. 4. Signal abnormalities in the posterior superior endplates of L2 and L4 without loss of vertebral body height suggesting bony contusion. Grayson Nash MD Femur X-Ray 05/06/17 0000 Signed Impressions: Service Date/Time: Saturday, May 06, 2017 18:46 - CONCLUSION: Negative exam. Grayson Nash MD Medical Decision Making Impression and Plan A: Intractable right L4 radiculopathy with L3-4 disk herniation and inferiorly migrated fragment. Advanced L2-L3 and L5-S1 degenerative disc disease with associated spondylolisthesis and worse at the L5-S1 level with severe right-sided foraminal stenosis. P: Continue with pain control Increase distance walking with PT Neurosurgically stable to d/c home. Follow up with pcp. If pts pain returns he can entertain a steroid injection with pain management as outpatient. If he doesn't get relief with conservative treatment and wants to entertain surgical treatment he can follow up as an outpatient. Discussed with patient and his family at bedside. They're very appreciative of the care provided. Ronn Abdul May 09, 2017 3:39 pm
[2017-05-09 15:40] VITALS: BP 146/80; PULSE 100; RESP 18; TEMP 96.7; O2SAT 94
[2017-05-09] MEDS ORDERED: MEDR4PAK PO (16:14)
[2017-05-09] MEDS ORDERED: LIDO5DIS5 T-DERMAL (16:14)
[2017-05-09] MEDS ORDERED: CYCL1TAB29 PO (16:14)
[2017-05-09] MEDS ORDERED: ALBUAER3 INH (16:15)
[2017-05-09] MEDS ORDERED: OXYC1TAB63 PO (16:23)
[2017-05-09] MEDS ORDERED: GABA400C5 PO (16:24)
--- NOTE | 2017-05-09 16:30 | HHI.DS ---
Discharge Summary Admission Date May 06, 2017 at 23:01 Discharge Date: May 09, 2017 Admitting Diagnosis intractable back pain (1) Intractable neuropathic pain of right lower extremity ICD Code: G57.91 - Unspecified mononeuropathy of right lower limb Diagnosis: Principal Status: Acute (2) Abnormal MRI, lumbar spine ICD Code: R93.7 - Abnormal findings on diagnostic imaging of other parts of musculoskeletal system Diagnosis: Principal Status: Acute (3) COPD (chronic obstructive pulmonary disease) ICD Code: J44.9 - Chronic obstructive pulmonary disease, unspecified Diagnosis: Secondary Status: Acute Procedures None Brief History - From Admission 66 year-old male with no chronic medical illnesses to be presented to the emergency department for evaluation of right lower extremity pain. Patient states that on Sunday night when he got up from eating dinner at approximate 6: 54 PM he started developing pain in his lower back with radiation down his right hip area. It did not improve so he went to his primary medical doctor's office on Sunday. He states that he went had x-rays done and was prescribed Toradol which did not help his pain. The patient states that the pain in his back did improve however he started having significant hip pain and pain down his right leg. He has had severe pain ever since. He contacted his primary medical doctor again and recommended him to go to the ER to rule out a blood clot. Patient did undergo ultrasound which was normal. At that time the patient states that he was discharged home on oxycodone and medication for nausea. As indicated that if patient doesn't have resolution that his primary medical doctor can consider having an MRI done. Patient states that the medication did not help for his pain. Because he was unable to control the pain , he could not handle his pain at home, he came back to the emergency department and was reevaluated. Patient was given Dilaudid and Toradol in the emergency department with temporary relief. ER documentation indicates that an MRI was performed because of the extreme subjective pain, there is no emergent process seen at that time. Patient did not have any signs of any cauda equina syndrome. He did not have any loss of bowel or bladder control, no difficulty in ambulating, no weakness of the lower extremity. Records indicated that the insisted on being seen by the attending physician in the emergency department who agreed to see the patient. MRI was performed at that time. MRI does indicate probable extruding disc fragment on the right side arising from L3 -L4 extending inferior into the lateral recess. Grade 1 anterolisthesis of L5- S1 without significant epidural impression. Asymmetric facet joint hypertrophy and left-sided L4-L5 causing indention of the dorsal lateral aspect of the thecal sac. Signal abnormalities in posterior superior endplates of L2 and L4 without loss of vertebral height suggesting bony contusion. Records indicate that patient was going to be discharged home with follow-up with orthopedics and primary medical doctor within 2-3 days. However, because of his intractable pain it was recommended that the patient will be placed in the hospital for further evaluation and management. Patient states that he was told by the ER physician that he will have to have an orthopedic consultation for further evaluation CBC/BMP: 05/07/17 0440 05/07/17 0440 Significant Findings Laboratory Tests Test 05/07/17 04:40 Monocytes (%) (Auto) 11.2 % (0.0-8.0) Total Protein 6.3 GM/DL (6.4-8.2) Albumin 3.2 GM/DL (3.4-5.0) Calcium Level 8.3 MG/DL (8.5-10.1) Estimat Glomerular Filtration Rate 85 ML/MIN (>89) Imaging Last Impressions Chest X-Ray 05/08/17 0000 Signed Impressions: Service Date/Time: Monday, May 08, 2017 08:58 - CONCLUSION: 1. Subtle linear airspace disease at the left lung base, presumably atelectasis. Bayron Duque MD Lumbar Spine X-Ray 05/07/17 0000 Signed Impressions: Service Date/Time: Sunday, May 07, 2017 15:00 - CONCLUSION: 1. Multilevel degenerative spondylosis most prominently at L2-3 and L5-S1 with minimal increased retrolisthesis of L2 on L3 during flexion. Bayron Duque MD Lumbar Spine CT 05/07/17 0000 Signed Impressions: Service Date/Time: Sunday, May 07, 2017 17:32 - CONCLUSION: 1. Advanced multilevel degenerative spondylosis most prominently at L2-3, L4-5 and L5-S1 with mild to moderate central canal narrowing at L4-5 and severe right neural foraminal stenosis at L5-S1. 2. Please see above for description of each level. Bayron Duque MD Pelvis X-Ray 05/06/17 Signed Impressions: Service Date/Time: Saturday, May 06, 2017 18:40 - CONCLUSION: Negative exam. Grayson Nash MD Lumbar Spine MRI 05/06/17 Signed Impressions: Service Date/Time: Saturday, May 06, 2017 19:35 - CONCLUSION: 1. Probable extruded disc fragment on the right side arising from L3-L4 extending inferior into the lateral recess. 2. Grade 1 anterolisthesis of L5-S1 without significant epidural impression. 3. Asymmetric facet joint hypertrophy and left-sided L4-5 causing indentation of the dorsal lateral aspect of the thecal sac. 4. Signal abnormalities in the posterior superior endplates of L2 and L4 without loss of vertebral body height suggesting bony contusion. Grayson Nash MD Femur X-Ray 05/06/17 0000 Signed Impressions: Service Date/Time: Saturday, May 06, 2017 18:46 - CONCLUSION: Negative exam. Grayson Nash MD PE at Discharge GENERAL: Well-developed well-nourished. In no acute distress. SKIN: Warm and dry. No lesions noted. HEENT: Normocephalic. Pupils equal and round. Mucous membranes pink and moist. CARDIOVASCULAR: Regular rate and rhythm. No murmur appreciated. RESPIRATORY: No accessory muscle use. Clear to auscultation. No wheezing. GASTROINTESTINAL: Abdomen soft, non-tender, nondistended. Bowel sounds x4. MUSCULOSKELETAL: No obvious deformities. No clubbing or cyanosis. No edema. NEUROLOGICAL: Awake and alert. Moves upper and lower extremities spontaneously. Normal speech. Lower extremity strength 5/5. PSYCHIATRIC: Appropriate mood and affect; insight and judgment normal. Pt update on day of discharge Patient cleared by PT and neurosurgery for discharge. Patient reassessed with family at bedside. Patient states his pain is well controlled at rest. He is able to walk about 2 rounds around the unit with pain still 2/10, however when he walks around more than that the pain begins to creep up. He did receive Tangent 5/325 earlier today, states pain was much better controlled on Tangent 10/ 325. The patient did not have much improvement in pain on previous dose of Percocet 5/325. They're agreeable for increase to Percocet 10/625, increased gabapentin to 400 mg 3 times a day, and continuing Flexeril, steroid taper, and Lidoderm patch for pain control. Agreeable with the plan of care for outpatient follow-up with PCP, PT, neurosurgery, and possibly pain management. Hospital Course 66 year-old male with no chronic medical illnesses who presented with right lower extremity pain Intractable right lower extremity radicular pain MRI of the lumbar spine did indicate abnormalities with extruding disc fragment on the right side arising from the L3-L4 extending inferior into the lateral recess. Neurosurgery consulted, evaluated by Dr. Lopez, no operative intervention for now and can follow-up as outpatient Continue pain control with Lidoderm patch, Percocet 4 times a day as needed, Flexeril 3 times a day as needed, gabapentin 400 mg 3 times a day. Can continue to titrate this regimen as outpatient PT consulted and recommended no restrictions, can continue to follow up for outpatient PT Probable acute exacerbation of underlying Asthma/COPD: Patient with extensive tobacco use history in the past. Wheezing improved with steroids and nebs. Continue steroid taper Albuterol MDI prescribed Outpatient PFTs Pt Condition on Discharge: Stable Discharge Disposition: Discharge Home Discharge Time: > 30 minutes Discharge Instructions DIET: Follow Instructions for: As Tolerated, No Restrictions Activities you can perform: Regular-No Restrictions Follow up Referrals: Neurosurgery - 1 Month with Celestine Lopez MD PCP Follow-up - 1 Week with Osmin Nunez MD New Medications: Albuterol 8.5 GM Inh (Proair Hfa 8.5 GM Inh) 90 Mcg/Act Aer 2 PUFF INH Q4-6H PRN for SHORTNESS OF BREATH, #1 INHALER 0 Refills 108 mcg/actuation Gabapentin (Gabapentin) 400 Mg Cap 400 CAP PO TID for Pain Management, #90 CAP 0 Refills Oxycodone-Acetaminophen (Oxycodone-Acetaminophen) 5-325 mg Tab 1-2 TAB PO Q6H PRN for PAIN, #24 TAB 0 Refills Lidocaine (Lidoderm) 5 % Adh..patch 1 PATCH T-DERMAL DAILY PRN for BACK PAIN, #30 PATCH Apply to affected area Changed Medications: Cyclobenzaprine (Flexeril) 10 Mg Tab 10 MG PO TID PRN for MUSCLE SPASM for 7 Days, #21 TAB 0 Refills (Medication details modified) Continued Medications: Alprazolam (Xanax) 0.25 Mg Tab 0.25 MG PO Q8H PRN for ANXIETY, TAB [address] (Diclofenac Sodium DR) 75 Mg Tabdr 75 MG PO DAILY, #30 TAB 0 Refills Methylprednisolone Dosepak (Medrol Dosepak) 4 Mg Dspk 4 MG PO DIRECTED for Inflammation, #1 DSPK 0 Refills (This prescription has been renewed) Per Pharmacist direction Discontinued Medications: Oxycodone-Acetaminophen (Percocet) 5-325 mg Tab 1 TAB PO Q6H PRN for PAIN, #20 TAB 0 Refills Tramadol (Tramadol) 50 Mg Tab 50 MG PO Q8H PRN for PAIN, TAB 0 Refills Cleve Griffin May 09, 2017 16:30
== END 2017-05-09 18:10 | disposition home or self-care (01) ==
LOC: PHEFT 14:28 → PHEDA 23:01 → PH3B 23:45 → NEPGCP 05-07 13:40
PROVIDERS: ADMIT Internal Medicine; ATTEND Internal Medicine
DX: M79.604 Pain in right leg (principal); G57.91 Unspecified mononeuropathy of right lower limb; M48.07 Spinal stenosis, lumbosacral region; M43.16 Spondylolisthesis, lumbar region; M54.41 Lumbago with sciatica, right side; M51.16 Intervertebral disc disorders with radiculopathy, lumbar region; M51.17 Intervertebral disc disorders with radiculopathy, lumbosacral region; M43.17 Spondylolisthesis, lumbosacral region; M25.551 Pain in right hip; K59.00 Constipation, unspecified; R05 Cough; R03.0 Elevated blood-pressure reading, without diagnosis of hypertension; J44.9 Chronic obstructive pulmonary disease, unspecified; F41.9 Anxiety disorder, unspecified; Z87.891 Personal history of nicotine dependence; Z79.899 Other long term (current) drug therapy
CPT/HCPCS: 71010; 72120; 72131; 72148; 72170; 73552; 80053; 85025; 94150; 94640; 94664; 96372; 96374; 96375; 96376; G0378; G8987-GP; G8988-GP; J1170; J1885; J2270; J2360; J2405; J2930; J7512